=== PATIENT | male | born 1930 | race Caucasian/White ===

== ENCOUNTER 2016-12-27 04:04 | Inpatient (IN) | payer OTHER, BC ==
--- NOTE | 2016-12-27 04:24 | PDOC ---
History of Present Illness - General History Source: Patient <Poncho Lorenzana - Last Filed: 12/27/16 05:24> - General History Source: Patient Exam Limitations: No Limitations - History of Present Illness Initial Comments: 12/27/16 04:34 The patient is a 86 year old male with significant past medical history of dementia, hypertension, hyperlipidemia, diabetes, COPD, and BPH who presents to the ED BIBA from home with left hip pain s/p unwitnessed mechanical fall prior to arrival. Patient reports he was walking when he lost his balance and fell. He now has complaints of left hip pain. Patient denies LOC or trauma to the head. The patient denies fever, chills, cough, SOB, chest pain, and palpitations. The patient denies abdominal pain, nausea, vomiting, and diarrhea. Allergies: NKDA Social History: No alcohol, tobacco, or drug use reported. Past Surgical History: cholecystectomy, s/p hernia repair PCP: Dr. Rubio Mcadams <Diann Vences - Last Filed: 12/27/16 05:59> - General Chief Complaint: Injury Stated Complaint: POSSIBLE HIP FRACTURE Time Seen by Provider: 12/27/16 04:20 Past History - Past Medical History Anemia: No Asthma: No Cancer: No Cardiac Disorders: Yes (ARRYTHMIA) CVA: No COPD: Yes CHF: No Dementia: Yes (Early dementia) Diabetes: Yes (NIDDM) GI Disorders: Yes (COLON POLYPS; DIVERTICULOSIS; CECAL ANGIODYSPLASIAS) Disorders: Yes (BPH) HTN: Yes Hypercholesterolemia: Yes Liver Disease: No Seizures: No Thyroid Disease: No - Surgical History Abdominal Surgery: No Appendectomy: No Cardiac Surgery: No Cholecystectomy: Yes (2003) Lung Surgery: No Neurologic Surgery: No Orthopedic Surgery: Yes (FX ANKLE 2001) - Immunization History Immunization Up to Date: Yes - Psycho/Social/Smoking Cessation Hx Suicidal Ideation: No Smoking Status: No Smoking History: Former smoker Have you smoked in the past 12 months: No Number of Cigarettes Smoked Daily: 0 If you are a former smoker, when did you quit?: 1981 Information on smoking cessation initiated: No Hx Alcohol Use: Yes Drug/Substance Use Hx: No Substance Use Type: None Hx Substance Use Treatment: No <Poncho Lorenzana - Last Filed: 12/27/16 05:24> <Diann Vences Last Filed: 12/27/16 05:59> - Past Medical History Allergies/Adverse Reactions: Allergies Allergy/AdvReac Type Severity Reaction Status Date / Time No Known Drug Allergies Allergy Verified 12/27/16 04:08 Home Medications: Ambulatory Orders Atorvastatin Ca [Lipitor] 20 mg PO HS 11/01/15 Docusate Sodium [Stool Softener] 50 mg PO DAILY 11/01/15 Escitalopram Oxalate [Lexapro -] 10 mg PO DAILY 11/01/15 Losartan Potassium 50 mg PO DAILY 11/01/15 Memantine HCl [Namenda -] 10 mg PO DAILY 11/01/15 Montelukast Sodium [Singulair] 4 mg PO DAILY 11/01/15 Propranolol HCl [Propranolol HCl ER] 80 mg PO DAILY 11/01/15 Glimepiride 1 mg PO DAILY #0 11/08/15 Tamsulosin HCl [Flomax -] 0.8 mg PO DAILY@0830 cap.er.24h 11/08/15 Review of Systems - Review of Systems Able to Perform ROS?: Yes Comments:: 12/27/16 04:35 CONSTITUTIONAL: Absent: fever, no chills, no fatigue EYES: Absent: visual changes ENT: Absent: ear pain, no sore throat CARDIOVASCULAR: Absent: chest pain, no palpitations RESPIRATORY: Absent: cough, no SOB GI: Absent: abdominal pain, no nausea, no vomiting, no constipation, no diarrhea GENITOURINARY: Absent: dysuria, no frequency, no hematuria MUSKULOSKELETAL: +left hip pain Absent: back pain, no myalgia SKIN: Absent: rash NEURO: Absent: headache <Diann Vences - Last Filed: 12/27/16 05:59> *Physical Exam - Vital Signs Last Vital Signs Temp Pulse Resp BP Pulse Ox 97.3 F L 67 18 173/87 100 12/27/16 04:09 12/27/16 04:09 12/27/16 04:09 12/27/16 04:09 12/27/16 04:09 <Poncho Lorenzana - Last Filed: 12/27/16 05:24> - Vital Signs Last Vital Signs Temp Pulse Resp BP Pulse Ox 97.3 F L 67 18 173/87 100 12/27/16 04:09 12/27/16 04:09 03/16/17 04:09 12/27/16 04:09 12/27/16 04:09 - Physical Exam Comments: 12/27/16 04:35 GENERAL: Well-appearing, well-nourished. No apparent distress. HEENT: Normocephalic, atraumatic. No racoon or ambrosio signs. PERRL, EOM intact. No hemotympanum. CARDIOVASCULAR: Normal S1, S2. Regular rate and rhythm. PULMONARY: Clear to auscultation bilaterally. ABDOMEN: Soft, non-distended, non-tender. EXTREMITIES: Decreased ROM of the left leg secondary to pain. Left leg is slightly shortened and externally rotated compared to right leg. Negative pelvic rock. SKIN: Warm, dry. No rash NEUROLOGICAL: No focal neurological deficits. <Diann Vences - Last Filed: 12/27/16 05:59> Heart Score/ECG Review - ECG Impressions Comment:: 12/27/16 05:28 NSR @69bpm Normal ECG <Diann Vences - Last Filed: 12/27/16 05:59> ED Treatment Course - LABORATORY CBC & Chemistry Diagram: 12/27/16 04:40 12/27/16 04:40 <Poncho Lorenzana - Last Filed: 12/27/16 05:24> - LABORATORY CBC & Chemistry Diagram: 12/27/16 04:40 12/27/16 04:40 <Diann Vences - Last Filed: 12/27/16 05:59> Medical Decision Making - Medical Decision Making 12/27/16 05:24 Dr. Lorenzana: The scribe's documentation has been prepared under my direction and personally reviewed by me in its entirery. I confirm that the note above accurately reflects all work, treatment, procedures, and medical decision making performed by me. Pt with left intratrochanteric hip s/p fall. No other complaints will admit to Medsurg <Poncho Lorenzana - Last Filed: 12/27/16 05:24> - Medical Decision Making 12/27/16 05:[address] Ahmet Benitez who is covering for Dr. Alexander Bolden who is covering for Dr. Rubio Mcadams (via answering service) at 5:58 and patient's case was discussed. <Diann Vences - Last Filed: 12/27/16 05:59> *DC/Admit/Observation/Transfer - Discharge Dispostion Admit: Yes <Poncho Lorenzana - Last Filed: 12/27/16 05:24> - Attestations Scribe Attestion: 12/27/16 04:35 Documentation prepared by Diann Vences, acting as medical information specialist for Poncho Lorenzana MD <Diann Vences - Last Filed: 12/27/16 05:59> Diagnosis at time of Disposition: Closed fracture of left hip Qualifiers: Encounter type: initial encounter Qualified Code(s): S72.002A - Fracture of unspecified part of neck of left femur, initial encounter for closed fracture - Referrals Referrals: Rubio Mcadams MD [Primary Care Provider] -
[2016-12-27] MEDS ORDERED: morphine CARPU-JECT 2 MG/1 ML DISP.SYRIN IVPUSH ONE (04:25)
[2016-12-27] MEDS ORDERED: ONDANSETRON 4 MG/2 ML VIAL IVPUSH STA (04:25)
[2016-12-27] MEDS ORDERED: morphine CARPU-JECT 4 MG/1 ML DISP.SYRIN ONE (04:30)
[2016-12-27] MEDS ORDERED: ONDANSETRON 4 MG/2 ML VIAL ONE (04:30)
[2016-12-27 05:06] LABS: BASOPHIL 0.2 % (0-2.0); EOSINOPHIL 1.2 % (0-4.5); MCH 30.1 pg (25.7-33.7); MCHC 33.6 g/dl (32.0-35.9); MEAN CELL VOLUME 89.5 fl (80-96); MEAN PLT VOLUME 7.8 fl (7.5-11.1); NEUTROPHILS 78.5 % (42.8-82.8); PLATELET COUNT 237 K/MM3 (134-434); RDW 13.1 % (11.9-15.9); WHITE BLOOD COUNT 12.8 K/mm3 (4.0-10.0)
[2016-12-27 05:18] LABS: INR 1.2 (0.82-1.09); PROTHROMBIN TIME (PATIENT) 13.3 SEC (9.98-11.88)
[2016-12-27 05:29] LABS: ALBUMIN 3.8 g/dl (3.4-5.0); ANION GAP 6 (8-16); BILIRUBIN,TOTAL 1.2 mg/dL (0.2-1.0); CALCIUM 9.3 mg/dL (8.5-10.1); CO2 30 mmol/L (21-32); CREATININE 0.9 mg/dL (0.7-1.3); GLUCOSE,RANDOM 135 mg/dL (74-106); SGOT/AST 16 U/L (15-37); SGPT/ALT 20 U/L (12-78); TOT PROT 6.9 g/dl (6.4-8.2)
[2016-12-27 05:31] LABS: ALK PHOS 95 U/L (45-117)
--- NOTE | 2016-12-27 08:51 | PN ---
Progress Note (short form) - Note Progress Note: Dr. Bolden to document today.
[2016-12-27 10:18] VITALS: BMI 20.7
[2016-12-27] MEDS ORDERED: PNEUMOC 13-VAL CONJ-DIP CRM/PF 0.5 ML DISP.SYRIN IM ONE (10:18)
[2016-12-27] MEDS ORDERED: morphine CARPU-JECT 2 MG/1 ML DISP.SYRIN IVPUSH PRN (11:14)
[2016-12-27] MEDS ORDERED: ONDANSETRON 4 MG/2 ML VIAL IVPB PRN (11:14)
[2016-12-27] MEDS ORDERED: oxyCODONE HCL 5 MG TABLET PO PRN (11:14)
[2016-12-27] MEDS ORDERED: ACETAMINOPHEN 325 MG TABLET (FP) PO PRN (11:14)
--- NOTE | 2016-12-27 11:23 | HP ---
Admitting History and Physical - Primary Care Physician PCP: Rubio Mcadams - Admission Chief Complaint: I don't know History of Present Illness: Mr Mariee is a very pleasant 86 year old male who comes in s/p fall with hip fracture. He has a history of dementia and does not remember falling until reminded, he says he thinks it was a mechanical fall. He currently is without complaint. He denies fevers, chills, lightheadedness, dizziness, passing out, chest pain, shortness of breath, nausea, vomiting, abdominal pain, diarrhea or constipation (daughter at bedside and states he has a history of IBS and this alternates), pain or difficulty urinating, or swelling. He says he feels fine currently. 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 Cardiovascular: Yes: HTN, Hyperlipdemia Pulmonary: Yes: COPD Gastrointestinal: Yes: Diverticulosis, Other (colon polyps, cecal angiodysplasias) Renal/: Yes: BPH Endocrine: Yes: Diabetes Mellitus - Past Surgical History Past Surgical History: Yes: Cholecystectomy, Hernia Repair, TURP - Smoking History Smoking history: Former smoker Have you smoked in the past 12 months: No Aproximately how many cigarettes per day: 0 If you are a former smoker, when did you quit?: 1981 - Alcohol/Substance Use Hx Alcohol Use: Yes Number of Drinks Daily: 3 (beers) History of Substance Use: reports: None - Social History Usual Living Arrangement: Yes: With Child ADL: Family Assistance History of Recent Travel: No Home Medications - Allergies Allergies/Adverse Reactions: Allergies Allergy/AdvReac Type Severity Reaction Status Date / Time No Known Drug Allergies Allergy Verified 12/27/16 04:08 - Home Medications Home Medications: Ambulatory Orders Atorvastatin Ca [Lipitor] 20 mg PO HS 11/01/15 Docusate Sodium [Stool Softener] 50 mg PO DAILY 11/01/15 Escitalopram Oxalate [Lexapro -] 10 mg PO DAILY 11/01/15 Losartan Potassium 50 mg PO DAILY 11/01/15 Memantine HCl [Namenda -] 10 mg PO DAILY 11/01/15 Montelukast Sodium [Singulair] 4 mg PO DAILY 11/01/15 Propranolol HCl [Propranolol HCl ER] 80 mg PO DAILY 11/01/15 Glimepiride 1 mg PO DAILY #0 11/08/15 Tamsulosin HCl [Flomax -] 0.8 mg PO DAILY@0830 cap.er.24h 11/08/15 Family Disease History - Family Disease History Family Disease History: CA: Sister (bca), Daughter (bca), Other: Father (CVA), Mother (dementia) Review of Systems Findings/Remarks: Full review of systems obtained, as per HPI and otherwise negative. Physical Examination Vital Signs: Vital Signs Temperature 97.5 F L 12/27/16 09:59 Pulse Rate 77 12/27/16 09:59 Respiratory Rate 20 12/27/16 09:59 Blood Pressure 103/58 12/27/16 09:59 O2 Sat by Pulse Oximetry (%) 98 12/27/16 09:09 Constitutional: Yes: Well Nourished, No Distress, Calm Eyes: Yes: Conjunctiva Clear, PERRL HENT: Yes: Atraumatic, Normocephalic Cardiovascular: Yes: Regular Rate and Rhythm. No: Gallop, Murmur, Rub Respiratory: Yes: Regular, CTA Bilaterally. No: Rales, Rhonchi, Wheezes Gastrointestinal: Yes: Normal Bowel Sounds, Soft. No: Distention, Tenderness Extremities: Yes: WNL Edema: No Labs: Laboratory Results - last 24 hr 12/27/16 12/27/16 12/27/16 04:40 04:40 04:40 WBC 12.8 H RBC 4.40 Hgb 13.2 Hct 39.4 MCV 89.5 MCHC 33.6 RDW 13.1 Plt Count 237 D MPV 7.8 Neutrophils % 78.5 Lymphocytes % 11.4 Monocytes % 8.7 Eosinophils % 1.2 Basophils % 0.2 INR 1.20 H Sodium 134 L Potassium 4.5 Chloride 98 Carbon Dioxide 30 Anion Gap 6 L BUN 9 Creatinine 0.9 Creat Clearance w eGFR > 60 Random Glucose 135 H D Calcium 9.3 D Magnesium 2.0 Total Bilirubin 1.2 H AST 16 ALT 20 Alkaline Phosphatase 95 B-Natriuretic Peptide 642.47 H Total Protein 6.9 Albumin 3.8 Lipase 373 Blood Type Antibody Screen 12/27/16 04:59 WBC RBC Hgb Hct MCV MCHC RDW Plt Count MPV Neutrophils % Lymphocytes % Monocytes % Eosinophils % Basophils % INR Sodium Potassium Chloride Carbon Dioxide Anion Gap BUN Creatinine Creat Clearance w eGFR Random Glucose Calcium Magnesium Total Bilirubin AST ALT Alkaline Phosphatase B-Natriuretic Peptide Total Protein Albumin Lipase Blood Type O POSITIVE Antibody Screen Negative Imaging - Results Chest X-ray: Report Reviewed, Image Reviewed EKG: Image Reviewed Problem List - Problems (1) Closed fracture of left hip Assessment/Plan: -s/p fall with lip fracture -admit to med/surg -orthopedic consultation -EKG NSR, chest x-ray unchanged -no further testing indicated prior to surgery Code(s): S72.002A - FRACTURE OF UNSP PART OF NECK OF LEFT FEMUR, INIT Qualifiers: Encounter type: initial encounter Qualified Code(s): S72.002A - Fracture of unspecified part of neck of left femur, initial encounter for closed fracture (2) Fall Assessment/Plan: -mechanical -PT consult after surgery Code(s): W19.XXXA - UNSPECIFIED FALL, INITIAL ENCOUNTER Qualifiers: Encounter type: initial encounter Qualified Code(s): W19.XXXA - Unspecified fall, initial encounter (3) BPH (benign prostatic hyperplasia) Assessment/Plan: -continue flomax -may have retention after surgery secondary to anesthesia Code(s): N40.0 - BENIGN PROSTATIC HYPERPLASIA WITHOUT LOWER URINRY TRACT SYMP (4) COPD (chronic obstructive pulmonary disease) Assessment/Plan: -not in exacerbation -chest x-ray unchanged -continue home regimen Code(s): J44.9 - CHRONIC OBSTRUCTIVE PULMONARY DISEASE, UNSPECIFIED (5) Dementia Assessment/Plan: -continue namenda Code(s): F03.90 - UNSPECIFIED DEMENTIA WITHOUT BEHAVIORAL DISTURBANCE Qualifiers: Dementia type: unspecified type Dementia behavioral disturbance: without behavioral disturbance Qualified Code(s): F03.90 - Unspecified dementia without behavioral disturbance (6) Diabetes Assessment/Plan: -diabetic diet when able to eat -continue glimeperide -SSI Code(s): E11.9 - TYPE 2 DIABETES MELLITUS WITHOUT COMPLICATIONS Qualifiers: Diabetes mellitus type: type 2 Diabetes mellitus complication status: without complication Qualified Code(s): E11.9 - Type 2 diabetes mellitus without complications (7) HLD (hyperlipidemia) Assessment/Plan: -continue statin Code(s): E78.5 - HYPERLIPIDEMIA, UNSPECIFIED Qualifiers: Hyperlipidemia type: Pure hypercholesterolemia (8) HTN (hypertension) Assessment/Plan: -continue cozaar and inderal -well controlled currently Code(s): I10 - ESSENTIAL (PRIMARY) HYPERTENSION Qualifiers: Hypertension type: essential hypertension Qualified Code(s): I10 - Essential (primary) hypertension
--- NOTE | 2016-12-27 11:35 | EKG ---
Test Reason : Blood Pressure : / mmHG Vent. Rate : 069 BPM Atrial Rate : 069 BPM P-R Int : 142 ms QRS Dur : 090 ms QT Int : 412 ms P-R-T Axes : 070 064 068 degrees QTc Int : 441 ms NORMAL SINUS RHYTHM NORMAL ECG WHEN COMPARED WITH ECG OF 01-NOV-2015 12:18, [place] INTERVAL HAS INCREASED Confirmed by VIDHI ASHFORD MD ([id number]) on 12/27/2016 11:35:01 AM Referred By: Confirmed By:VIDHI ASHFORD MD
--- NOTE | 2016-12-27 11:37 | CON.ORTH ---
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 Cardio/Vascular: Yes: HTN, Hyperlipdemia Pulmonary: Yes: COPD Gastrointestinal: Yes: Diverticulosis, Other (colon polyps, cecal angiodysplasias) Renal/: Yes: BPH Endocrine: Yes: Diabetes Mellitus - Past Surgical History Past Surgical History: Yes: Cholecystectomy, Hernia Repair, TURP - Alcohol/Substance Use Hx Alcohol Use: Yes Number of Drinks Daily: 3 (beers) History of Substance Use: reports: None - Smoking History Smoking history: Former smoker Have you smoked in the past 12 months: No Aproximately how many cigarettes per day: 0 If you are a former smoker, when did you quit?: 1981 - Social History ADL: Family Assistance History of Recent Travel: No Home Medications - Allergies Allergies/Adverse Reactions: Allergies Allergy/AdvReac Type Severity Reaction Status Date / Time No Known Drug Allergies Allergy Verified 12/27/16 04:08 - Home Medications Home Medications: Ambulatory Orders Atorvastatin Ca [Lipitor] 20 mg PO HS 11/01/15 Docusate Sodium [Stool Softener] 50 mg PO DAILY 11/01/15 Escitalopram Oxalate [Lexapro -] 10 mg PO DAILY 11/01/15 Losartan Potassium 50 mg PO DAILY 11/01/15 Memantine HCl [Namenda -] 10 mg PO DAILY 11/01/15 Montelukast Sodium [Singulair] 4 mg PO DAILY 11/01/15 Propranolol HCl [Propranolol HCl ER] 80 mg PO DAILY 11/01/15 Glimepiride 1 mg PO DAILY #0 11/08/15 Tamsulosin HCl [Flomax -] 0.8 mg PO DAILY@0830 cap.er.24h 11/08/15 Family Disease History - Family Disease History Family Disease History: CA: Sister (bca), Daughter (bca), Other: Father (CVA), Mother (dementia) Physical Exam for Ortho Vital Signs: Vital Signs Temperature 97.5 F L 12/27/16 09:59 Pulse Rate 77 12/27/16 09:59 Respiratory Rate 20 12/27/16 09:59 Blood Pressure 103/58 12/27/16 09:59 O2 Sat by Pulse Oximetry (%) 98 12/27/16 09:09 Labs: INR, PTT INR 1.20 (0.82-1.09) H 12/27/16 04:40 - Lower Extremity Hip: Yes: Left, Decreased ROM, Leg Externally Rotated, Leg Shortened, Pain, Swelling, Other (nvi) Imaging - Results X-ray: Report Reviewed, Image Reviewed Assessment/Plan 86 year old male who comes in s/p fall with hip fracture. He has a history of dementia and does not remember falling until reminded, he says he thinks it was a mechanical fall. He currently is without complaint. He denies fevers, chills, lightheadedness, dizziness, passing out, chest pain, shortness of breath, nausea , vomiting, abdominal pain, diarrhea or constipation, pain or difficulty urinating, or swelling. a/p= left displaced proximal femur fx Risks and benefits were d/w pt and daughter will require left IM gamma nail surgical clearance NPO- possible OR for today/tomorrow d/w Dr. Forbes
[2016-12-27 11:50] LABS: PH,URINE 5.5 (5.0-8.0); URINE APPEARANCE CLEAR; URINE BILIRUBIN NEGATIVE (NEGATIVE); URINE BLOOD NEGATIVE (NEGATIVE); URINE COLOR YELLOW; URINE GLUCOSE (UA) NEGATIVE (NEGATIVE); URINE KETONE TRACE (NEGATIVE); URINE LEUK ESTERASE NEGATIVE (NEGATIVE); URINE NITRITE NEGATIVE (NEGATIVE); URINE PROTEIN TRACE (NEGATIVE); URINE UROBILINOGEN 1.0 E.U/dl E.U./dl (0.2-1.0)
[2016-12-27] MEDS ORDERED: LOSARTAN POTASSIUM 50 MG TABLET (FP) PO SCH (15:45)
--- NOTE | 2016-12-27 16:31 | PN ---
Progress Note (short form) - Note Progress Note: Pt seen and examined. All questions answered. Risks, potential complications, benefits explained. OR too busy to do the surgery tonight. Plan - Left Hip surgery tomorrow around 3pm. NPO after midnight tonight Medical clearance
[2016-12-27] MEDS: INSULIN SLIDING SCALE (NOVOLOG) 1 VIAL SQ SCH ×2 (16:33→21:01)
[2016-12-27] MEDS: TAMSULOSIN HCL 0.4 MG CAP.ER.24H (FP) PO SCH (16:33)
[2016-12-27] MEDS: ENOXAPARIN NA (PORCINE) 40 MG/0.4 ML DISP.SYRIN SQ SCH (16:34)
[2016-12-27] MEDS: ESCITALOPRAM OXALATE 10 MG TABLET (FP) PO SCH (16:34)
[2016-12-27] MEDS: MEMANTINE HCL 10 MG TABLET (FP) PO SCH (16:34)
[2016-12-27] MEDS: DOCUSATE SODIUM 100 MG CAPSULE (FP) PO SCH (21:30)
[2016-12-27] MEDS: ATORVASTATIN CA 20 MG TABLET (FP) PO SCH (21:30)
[2016-12-28] MEDS: GLIMEPIRIDE 1 MG TABLET (FP) PO SCH (06:02)
[2016-12-28] MEDS: INSULIN SLIDING SCALE (NOVOLOG) 1 VIAL SQ SCH ×3 (06:03→22:15)
[2016-12-28 08:02] LABS: BASOPHIL 0.1 % (0-2.0); EOSINOPHIL 0.1 % (0-4.5); MCH 30.6 pg (25.7-33.7); MCHC 34.5 g/dl (32.0-35.9); MEAN CELL VOLUME 88.6 fl (80-96); MEAN PLT VOLUME 8.1 fl (7.5-11.1); NEUTROPHILS 74.8 % (42.8-82.8); PLATELET COUNT 213 K/MM3 (134-434); RDW 13.2 % (11.9-15.9)
[2016-12-28 08:48] LABS: CALCIUM 8.3 mg/dL (8.5-10.1); CREATININE 1.4 mg/dL (0.7-1.3); MAGNESIUM 1.8 mg/dL (1.8-2.4); PHOSPHOROUS 4.4 mg/dL (2.5-4.9)
[2016-12-28] MEDS: ESCITALOPRAM OXALATE 10 MG TABLET (FP) PO SCH (09:12)
[2016-12-28] MEDS: TAMSULOSIN HCL 0.4 MG CAP.ER.24H (FP) PO SCH (09:12)
[2016-12-28] MEDS: MEMANTINE HCL 10 MG TABLET (FP) PO SCH (09:12)
[2016-12-28] MEDS: POLYETHYLENE GLYCOL 3350 119 GM BTL PO SCH (09:12)
[2016-12-28] MEDS: DOCUSATE SODIUM 100 MG CAPSULE (FP) PO SCH ×2 (09:12→22:21)
[2016-12-28] MEDS: DEXTROSE 5%-0.45% SALINE 1,000 ML IV SCH ×2 (09:25→19:45)
[2016-12-28] MEDS ORDERED: PATIENT'S OWN MEDICATION (NON-FORMULARY) (Montelukast Sodium [Singulair] 4 MG) PO SCH (10:00)
--- NOTE | 2016-12-28 10:24 | PN ---
Progress Note (short form) - Note Progress Note: Patient will be going to the OR today for Gamma nail placement left hip. He seems comfortable on current meds but does have dementia so sometimes nonverbal assessment of his pain may have to be considered. He had clearance for hernia surgery Oct, 2015 and has no complaints of chest pain or SOB and EKG and CXR show no acute changes. BP trending lower this AM and BUN is increased so IV fluids ordered at 75 cc/hr. Other issue is elevated WBC which may be a stress reaction as he is afebrile and urine clear and CXR has no infiltrate.Will order blood and urine C/S. On Exam: Vital Signs Period Temp Pulse Resp BP Sys/Quinn Pulse Ox Last 24 Hr 97.6 F-98.9 F 77-92 16-20 88-110/45-61 94 Alert and recognizes me Not showing signs of acute pain Chest:Decreased breath sounds Cor: reg Abd; Soft Left leg externally rotated No pedal edema Abnormal Lab Results 12/27/16 12/28/16 12/28/16 11:29 05:35 05:35 WBC 15.0 H RBC 3.08 L D Hgb 9.4 L D Hct 27.3 L D Monocytes % 14.6 H Sodium 134 L Chloride 96 L BUN 19 H D Creatinine 1.4 H D Random Glucose 139 H Calcium 8.3 L Urine Protein Trace H Urine Ketones Trace H IMP: Acute left hip fx. due to mechanical fall DM Type 2 controlled Hypertension by Hx Acute blood loss anemia due to fracture Relative hypotension due to acute dehydartion Hyperlipidemia Dementia on Rx PLAN: patient has no medical contraindications to surgery Close followup of BP and CBC; IV fluid in place EKG in recovery room type and screen in lab BGM ordered
[2016-12-28] MEDS ORDERED: BUPIVACAINE HCL/PF 0.5% (5MG/ML) 10 ML VIAL ONE (15:45)
[2016-12-28] MEDS ORDERED: SUCCINYLCHOLINE CHLORIDE 200 MG/10 ML VIAL ONE (15:49)
[2016-12-28] MEDS ORDERED: ceFAZolin SODIUM 1 GM VIAL IVPB ONE (16:00)
[2016-12-28] MEDS ORDERED: ceFAZolin SODIUM 1 GM VIAL ONE (16:11)
--- NOTE | 2016-12-28 16:38 | OP ---
Operative Note - Note: Operative Date: 12/28/16 Pre-Operative Diagnosis: left IT hip Fx Operation: Left gamma Post-Operative Diagnosis: Same as Pre-op Surgeon: Adria Silva Anesthesia: General, Spinal Operative Report Dictated: Yes
[2016-12-28] MEDS ORDERED: LACTATED RINGERS SOLUTION 1,000 ML IV SCH ×2 (16:45)
[2016-12-28] MEDS ORDERED: CEFAZOLIN 1 GM/D5W 50 ML IVPB SCH (18:00)
--- NOTE | 2016-12-28 18:04 | SPEC ---
DATE OF SURGERY: 12/28/2016 OPERATION: Left Gamma nailing. PREOPERATIVE DIAGNOSIS: Left intertrochanteric hip fracture. POSTOPERATIVE DIAGNOSIS: Left intertrochanteric hip fracture. SURGEON: Adria Silva M.D. ANESTHESIA: Spinal and general. CLOSURE: A short Gamma nail with appropriate interlocks. No. 0 Vicryl for fascia, 2-0 for subcutaneous, linette for skin. ESTIMATED BLOOD LOSS: Less than 100 mL. COMPLICATIONS: None. CONDITION: Recovery room in stable condition. DESCRIPTION OF OPERATIVE PROCEDURE: The patient was taken to the operating room. Spinal anesthesia was administered by the anesthesiologist. IV antibiotic prophylaxis was administered prior to the case. Patient was fastened to the fracture table with all prominences well padded. The left hip fracture was reduced and confirmation of excellent reduction from the AP and lateral planes was established using the image intensifier. A small 1-inch incision was made at the greater tip of the greater trochanter. Hemostasis was achieved with Bovie cautery. Sharp dissection was carried through the fascia. The K-wire was drilled from the tip of the greater trochanter past the fracture, into the intramedullary canal. Proper placement confirmed the AP and lateral planes by using the image intensifier. This was overreamed with a proximal reamer using the tissue protector to protect the soft tissue in the region. A short Gamma nail was then malleted down into place into the intramedullary canal to the appropriate level. Using the outrigger and a small stab incision laterally, a Guidewire was drilled from one aspect of the femur through the femoral neck into the femoral head. Proper placement was confirmed of the AP and lateral planes using image intensifier. The wire was measured for length and was overreamed with a triple reamer and was screwed with the appropriate-length lag screw. Confirmation of appropriate depth was confirmed in the AP and lateral planes by using image intensifier. Traction was reduced. The compression device was used to compress the fracture and a screw was placed from above in a dynamic fashion. Again, using the outrigger and a small stab incision laterally, the distal locking screw was placed by drilling and an appropriate-sized screw. The outrigger was removed. Confirmation of excellent reduction was confirmed in the AP and lateral planes by using image intensifier with excellent position of the hardware. All incisions were irrigated with copious amounts of irrigation. The fascia was closed with 0 Vicryl, 2-0 for subcutaneous and 3-0 Monocryl subcuticular for skin. A sterile pressure dressing was applied. The patient was awakened from anesthesia and transferred to recovery room in stable condition. No complications. Estimated blood loss less than 100 mL. ADRIA SILVA M.D. [id number]
[2016-12-28] MEDS: ATORVASTATIN CA 20 MG TABLET (FP) PO SCH (22:20)
[2016-12-29] MEDS: INSULIN SLIDING SCALE (NOVOLOG) 1 VIAL SQ SCH ×3 (06:20→21:14)
--- NOTE | 2016-12-29 08:23 | PN ---
Progress Note (short form) - Note Progress Note: PATIENT S/P LT HIP FX ,> GAMMA NAIL REPAIR . WELL TODAY <> NO COMPLAINTS OF HIP PAIN > NO CP / NO SOB / NO PALPITATIONS. Selected Entries 12/29/16 06:00 Temperature 98.4 F Pulse Rate 94 H Respiratory 18 Rate Blood Pressure 130/56 Laboratory Tests 12/28/16 12/28/16 12/29/16 05:35 05:35 06:17 WBC 15.0 H RBC 3.08 L D Hgb 9.4 L D Hct 27.3 L D Plt Count 213 Sodium 134 L Potassium 4.3 Chloride 96 L Carbon Dioxide 28 Anion Gap 10 BUN 19 H D Creatinine 1.4 H D POC Glucometer 196 Calcium 8.3 L Phosphorus 4.4 D Magnesium 1.8 P/E <> AWAKE/ ALERT / NO DISTRESS HEENT <> NECK SUPPLE / CAROTIDS <> NO BRUITS COR < > S 1 S 2 NO M NO G CHEST <> CLEAR / NO RHONCHI ABD <> SOFT / NON TENDER. EXT <> NO CALF TENDERNESS. IMP >< LT HIP FX <> S/P GAMMA NAIL DEMENTIA HTN ANEMIA DUE TO BLOOD LOSS TYPE 2 DM HYPERCHOLESTEROLEMIA PLAN : ORTHO FOLLOWUP MONITOR LABS FOLLOW CBC PT EVAL [facility] REHAB.
[2016-12-29 08:51] LABS: MCHC 34.8 g/dl (32.0-35.9); MEAN CELL VOLUME 89.2 fl (80-96); MEAN PLT VOLUME 7.9 fl (7.5-11.1); PLATELET COUNT 200 K/MM3 (134-434); WHITE BLOOD COUNT 13.6 K/mm3 (4.0-10.0)
[2016-12-29 08:53] LABS: BASOPHIL 0.1 % (0-2.0); EOSINOPHIL 0.1 % (0-4.5); MCH 30.8 pg (25.7-33.7); MCHC 34.5 g/dl (32.0-35.9); MEAN CELL VOLUME 89.2 fl (80-96); MEAN PLT VOLUME 8.2 fl (7.5-11.1); NEUTROPHILS 77.5 % (42.8-82.8); PLATELET COUNT 195 K/MM3 (134-434); RDW 12.9 % (11.9-15.9); WHITE BLOOD COUNT 13.6 K/mm3 (4.0-10.0)
[2016-12-29 09:17] LABS: CREATININE 1.2 mg/dL (0.7-1.3)
[2016-12-29] MEDS ORDERED: PT OWN MED DRAWER 7, Y5N ONE (09:29)
--- NOTE | 2016-12-29 09:34 | PN ---
Progress Note (short form) - Note Progress Note: ANESTHESIOLOGY POST-OP CHECK 86M s/p left gamma nail under spinal anesthesia, POD #1. No acute complaints. Tolerating PO, denies N/V, backache, headache, numbness, weakness. Pain 4/10 - tolerable Vital Signs Temperature 98.4 F 12/29/16 06:00 Pulse Rate 94 H 12/29/16 06:00 Respiratory Rate 18 12/29/16 06:00 Blood Pressure 130/56 12/29/16 06:00 O2 Sat by Pulse Oximetry (%) 95 12/28/16 21:00 Active Medications Acetaminophen (Tylenol -) 650 mg PO Q4H PRN PRN Reason: FEVER OR PAIN Atorvastatin Calcium (Lipitor -) 20 mg PO HS [facility] Last Admin: 12/28/16 22:20 Dose: 20 mg Docusate Sodium (Colace -) 100 mg PO BID [facility] Last Admin: 12/28/16 22:21 Dose: 100 mg Docusate Sodium (Colace Liquid -) 50 mg PO DAILY [facility] Enoxaparin Sodium (Lovenox -) 40 mg SQ DAILY [facility] Last Admin: 12/27/16 16:34 Dose: 40 mg Escitalopram Oxalate (Lexapro -) 10 mg PO DAILY [facility] Last Admin: 12/28/16 09:12 Dose: 10 mg Fentanyl (Sublimaze Injection -) 50 mcg IVPUSH [id number] PRN PRN Reason: PAIN Stop: 12/31/16 16:42 Glimepiride (Amaryl -) 1 mg PO DAILY@0700 [facility] Last Admin: 12/28/16 06:02 Dose: Not Given Dextrose/Sodium Chloride (D5-1/2ns -) 1,000 mls @ 75 mls/hr IV ASDIR [facility] Last Admin: 12/28/16 19:45 Dose: 0 mls Lactated Ringer's (Lactated Ringers Solution) 1,000 mls @ 75 mls/hr IV ASDIR [facility] Last Admin: 12/28/16 20:05 Dose: Not Given Insulin Aspart (Novolog Vial Sliding Scale -) 1 vial SQ ACHS [facility] PRN Reason: Protocol Last Admin: 12/29/16 06:20 Dose: Not Given Memantine (Namenda -) 10 mg PO DAILY [facility] Last Admin: 12/28/16 09:12 Dose: 10 mg Morphine Sulfate (Morphine Injection -) 1 mg IVPUSH Q4H PRN PRN Reason: PAIN Last Admin: 12/27/16 16:38 Dose: 1 mg Ondansetron HCl (Zofran Injection) 4 mg IVPB Q6H PRN PRN Reason: NAUSEA Oxycodone HCl (Roxicodone -) 5 mg PO Q4H PRN PRN Reason: PAIN Polyethylene Glycol (Miralax (For Daily Use) -) 17 gm PO DAILY [facility] Last Admin: 12/28/16 09:12 Dose: Not Given Tamsulosin HCl (Flomax -) 0.8 mg PO DAILY@0830 [facility] Last Admin: 12/28/16 09:12 Dose: 0.8 mg Gen: Awake, alert Ext: No apparent motor/sensory deficits of bilateral lower extremities No apparent anesthesia complications, pain well controlled. Continue management as per primary team.
[2016-12-29] MEDS: GLIMEPIRIDE 1 MG TABLET (FP) PO SCH (09:59)
[2016-12-29] MEDS: DOCUSATE SODIUM 100 MG CAPSULE (FP) PO SCH ×2 (09:59→21:13)
[2016-12-29] MEDS: ESCITALOPRAM OXALATE 10 MG TABLET (FP) PO SCH (09:59)
[2016-12-29] MEDS: MEMANTINE HCL 10 MG TABLET (FP) PO SCH (09:59)
[2016-12-29] MEDS: TAMSULOSIN HCL 0.4 MG CAP.ER.24H (FP) PO SCH (09:59)
[2016-12-29] MEDS ORDERED: ENOXAPARIN NA (PORCINE) 40 MG/0.4 ML DISP.SYRIN SQ SCH (10:00)
[2016-12-29] MEDS: POLYETHYLENE GLYCOL 3350 119 GM BTL PO SCH (10:03)
[2016-12-29] MEDS: ENOXAPARIN NA (PORCINE) 40 MG/0.4 ML DISP.SYRIN SQ SCH (12:00)
--- NOTE | 2016-12-29 13:36 | PN ---
Progress Note (short form) - Note Progress Note: ID Consult dictated +Urine c/s likely contaminant/ colonizer S/P L hip fracture OBS Repeat U/A, c/s Observe off antibiotics
[2016-12-29] MEDS: DOCUSATE NA 100 MG/10 ML UNIT-DOSE CUPS PO SCH (13:45)
--- NOTE | 2016-12-29 14:00 | CONS ---
DATE OF CONSULTATION: DATE OF DICTATION: 12/29/2016 The patient is an 86-year-old male who was evaluated for positive urine culture. The patient was admitted to the hospital on December 27, 2016, with left hip pain after a mechanical fall. He was found to have a left hip fracture. The patient was taken to the operating room where a Gamma Nail procedure was performed. Urine culture obtained is now growing 2 organisms, enterococcus 10,000 to 20,000 colonies and gram-negative rods less than 10,000 colonies. The patient is awake and alert. He denies any urinary tract symptoms. He denies any dysuria or hematuria. No complaints of suprapubic or flank pain. He has been afebrile. PAST MEDICAL HISTORY: Positive for dementia, hypertension, hyperlipidemia, diabetes mellitus, COPD. ALLERGIES: No known allergies. MEDICATIONS: Zofran, Flomax, Tylenol, Lovenox, Lexapro, Colace, Namenda, Lipitor, morphine, Amaryl. PAST SURGICAL HISTORY: Status post cholecystectomy, hernia repair, and TURP. SOCIAL HISTORY: Lives at home, former smoker. REVIEW OF SYSTEMS: Neurologic: No loss of consciousness, seizure activity, focal weakness. Positive dementia. Cardiac: Negative chest pain or palpitations. Respiratory: Negative cough or sputum production. Gastrointestinal: Negative vomiting or diarrhea. Genitourinary: As per HPI. LABORATORY DATA: White count 13.6, hematocrit 24.6, platelets 200. BUN 19, creatinine 1.2. Urinalysis: No white cells. Urine culture growing 10,000 to 20,000 enterococcus species, less than 10,000 gram-negative rods. PHYSICAL EXAMINATION: General: He is out of bed to chair. He is awake and alert, in no acute distress. Vital Signs: Temperature 98.4. Blood pressure 124/56. Pulse 100, regular. Respirations 18 per minute. HEENT: Sclerae are anicteric. Cardiovascular: Heart sounds S1, S2. Lungs: Clear. Abdomen: Soft. No suprapubic tenderness. Extremities: Negative for edema. Postop dressing in place, left hip. ASSESSMENT: 1. Positive urine culture, likely represents contamination/colonization. 2. Status post left hip fracture with repair. 3. Dementia. Absence of urinary tract symptoms, polyuria, and presence of 2 organisms and low colony count all suggestive of contamination or colonization of the urinary tract. Advised observe off antibiotic therapy. Repeat urinalysis and urine culture. Thank you for the kind referral. TAWANDA BAHENA M.D. [id number]
--- NOTE | 2016-12-29 16:33 | PN ---
Progress Note (short form) - Note Progress Note: Pt seen and examined. On POD #1 s/p Gamma nail.Comfortable, no c/o pain, did P.T. H/H lower but ok at 8.6/24.6 AVSS B/L LE are NVI Good ROM Good strength Dressing CDI Overall doing well. P.T. DC planning
[2016-12-29] MEDS: ATORVASTATIN CA 20 MG TABLET (FP) PO SCH (21:13)
[2016-12-30] MEDS: DEXTROSE 5%-0.45% SALINE 1,000 ML IV SCH ×2 (01:39→22:52)
[2016-12-30 03:12] LABS: URINE APPEARANCE CLEAR; URINE BILIRUBIN NEGATIVE (NEGATIVE); URINE BLOOD NEGATIVE (NEGATIVE); URINE COLOR YELLOW; URINE GLUCOSE (UA) NEGATIVE (NEGATIVE); URINE KETONE NEGATIVE (NEGATIVE); URINE LEUK ESTERASE NEGATIVE (NEGATIVE); URINE NITRITE NEGATIVE (NEGATIVE); URINE PROTEIN NEGATIVE (NEGATIVE); URINE UROBILINOGEN 2.0 E.U/dl E.U./dl (0.2-1.0)
[2016-12-30] MEDS ORDERED: PT OWN MED DRAWER 7, Y5N ONE ×2 (06:11→10:07)
[2016-12-30] MEDS: GLIMEPIRIDE 1 MG TABLET (FP) PO SCH ×2 (06:13→11:15)
[2016-12-30] MEDS: INSULIN SLIDING SCALE (NOVOLOG) 1 VIAL SQ SCH ×5 (06:13→23:00)
[2016-12-30 07:22] LABS: MCH 30.8 pg (25.7-33.7); MCHC 34.2 g/dl (32.0-35.9); MEAN CELL VOLUME 89.9 fl (80-96); MEAN PLT VOLUME 7.8 fl (7.5-11.1); PLATELET COUNT 198 K/MM3 (134-434); RDW 13.5 % (11.9-15.9); WHITE BLOOD COUNT 11.5 K/mm3 (4.0-10.0)
--- NOTE | 2016-12-30 08:20 | PN ---
[id number] S/P LT HIP FX WITH GAMMA NAIL REPAIR . DROP H /H NOTED TODAY Selected Entries 12/30/16 05:00 Temperature 98.2 F Pulse Rate 96 H Respiratory 20 Rate Blood Pressure 120/56 Blood Pressure 77 Mean Laboratory Tests 12/29/16 12/30/16 06:50 06:15 WBC 11.5 H RBC 2.54 L Hgb 7.8 L Hct 22.8 L Plt Count 198 Sodium 136 Potassium 4.3 Chloride 99 Carbon Dioxide 28 Anion Gap 9 BUN 19 H Creatinine 1.2 Random Glucose 173 H D Calcium 8.0 L Selected Entries Laboratory Tests P/E <> AWAKE/ COMFORTABLE / CONFUSED AT TIMES. HEENT <> NECK SUPPLE / CAROTIDS <> NO BRUITS COR < > S 1 S 2 NO M NO G CHEST <> CLEAR / NO RHONCHI ABD <> SOFT / NON TENDER. EXT <> NO CALF TENDERNESS / LEFT HIP BANDAGE IN PLACE. IMP >< LT HIP FX <> S/P GAMMA NAIL DEMENTIA HTN ANEMIA DUE TO BLOOD LOSS / DROP H / H TODAY. TYPE 2 DM HYPERCHOLESTEROLEMIA PLAN :REPEAT CBC TOMORROW / TRANSFUSE PRBC NEEDED. CONTINUE PT RX. ORTHO FOLLOWUP APPRECIATED. PLAN FOR SNF REHAB.
[2016-12-30] MEDS: ENOXAPARIN NA (PORCINE) 40 MG/0.4 ML DISP.SYRIN SQ SCH (09:11)
[2016-12-30] MEDS: DOCUSATE SODIUM 100 MG CAPSULE (FP) PO SCH ×2 (09:11→22:52)
[2016-12-30] MEDS: MEMANTINE HCL 10 MG TABLET (FP) PO SCH (09:12)
[2016-12-30] MEDS: ESCITALOPRAM OXALATE 10 MG TABLET (FP) PO SCH (09:12)
[2016-12-30] MEDS: TAMSULOSIN HCL 0.4 MG CAP.ER.24H (FP) PO SCH (09:12)
[2016-12-30] MEDS: DOCUSATE NA 100 MG/10 ML UNIT-DOSE CUPS PO SCH (09:15)
--- NOTE | 2016-12-30 11:29 | EKG ---
Test Reason : Blood Pressure : / mmHG Vent. Rate : 099 BPM Atrial Rate : 099 BPM P-R Int : 132 ms QRS Dur : 102 ms QT Int : 358 ms P-R-T Axes : 062 046 067 degrees QTc Int : 459 ms NORMAL SINUS RHYTHM INCOMPLETE RIGHT BUNDLE BRANCH BLOCK BORDERLINE ECG WHEN COMPARED WITH ECG OF 28-DEC-2016 16:43, COMPARED TO EKG NO SIGNIFICANT CHANGE IS FOUND Confirmed by NEETU AMAYA MD ([id number]) on 12/30/2016 11:29:08 AM Referred By: SAUL MARIE Confirmed By:NEETU AMAYA MD
[2016-12-30] MEDS: POLYETHYLENE GLYCOL 3350 119 GM BTL PO SCH (14:52)
--- NOTE | 2016-12-30 16:33 | PN ---
Progress Note, Physician History of Present Illness: No c/o hip pain No fever/ chills No c/o dysuria - Current Medication List Current Medications: Active Medications Acetaminophen (Tylenol -) 650 mg PO Q4H PRN PRN Reason: FEVER OR PAIN Last Admin: 12/29/16 11:01 Dose: 650 mg Atorvastatin Calcium (Lipitor -) 20 mg PO HS [facility] Last Admin: 12/29/16 21:13 Dose: 20 mg Docusate Sodium (Colace -) 100 mg PO BID [facility] Last Admin: 12/30/16 09:11 Dose: 100 mg Docusate Sodium (Colace Liquid -) 50 mg PO DAILY [facility] Last Admin: 12/30/16 09:15 Dose: Not Given Enoxaparin Sodium (Lovenox -) 40 mg SQ DAILY [facility] Last Admin: 12/30/16 09:11 Dose: 40 mg Escitalopram Oxalate (Lexapro -) 10 mg PO DAILY [facility] Last Admin: 12/30/16 09:12 Dose: 10 mg Fentanyl (Sublimaze Injection -) 50 mcg IVPUSH [id number] PRN PRN Reason: PAIN Stop: 12/31/16 16:42 Glimepiride (Amaryl -) 1 mg PO DAILY@0700 [facility] Last Admin: 12/30/16 11:15 Dose: 1 mg Dextrose/Sodium Chloride (D5-1/2ns -) 1,000 mls @ 75 mls/hr IV ASDIR [facility] Last Admin: 12/30/16 01:39 Dose: 75 mls/hr Insulin Aspart (Novolog Vial Sliding Scale -) 1 vial SQ ACHS [facility] PRN Reason: Protocol Last Admin: 12/30/16 11:35 Dose: Not Given Memantine (Namenda -) 10 mg PO DAILY [facility] Last Admin: 12/30/16 09:12 Dose: 10 mg Ondansetron HCl (Zofran Injection) 4 mg IVPB Q6H PRN PRN Reason: NAUSEA Polyethylene Glycol (Miralax (For Daily Use) -) 17 gm PO DAILY [facility] Last Admin: 12/30/16 14:52 Dose: 17 gm Tamsulosin HCl (Flomax -) 0.8 mg PO DAILY@0830 [facility] Last Admin: 12/30/16 09:12 Dose: 0.8 mg - Objective Vital Signs: Vital Signs Temperature 98.2 F 12/30/16 05:00 Pulse Rate 100 H 12/30/16 13:00 Respiratory Rate 18 12/30/16 13:00 Blood Pressure 115/57 12/30/16 13:00 O2 Sat by Pulse Oximetry (%) 95 12/29/16 21:00 Constitutional: Yes: No Distress Eyes: Yes: Conjunctiva Clear Cardiovascular: Yes: Regular Rate and Rhythm, S1, S2 Respiratory: Yes: CTA Bilaterally Gastrointestinal: Yes: Normal Bowel Sounds, Soft. No: Tenderness Labs: CBC, BMP 12/30/16 06:15 12/29/16 06:50 INR, PTT INR 1.20 (0.82-1.09) H 12/27/16 04:40 Assessment/Plan +Urine c/s= contaminant S/P hip fracture OBS Observe off antibiotics
[2016-12-30] MEDS: ATORVASTATIN CA 20 MG TABLET (FP) PO SCH (22:53)
[2016-12-31] MEDS: INSULIN SLIDING SCALE (NOVOLOG) 1 VIAL SQ SCH ×5 (06:21→22:14)
[2016-12-31] MEDS: GLIMEPIRIDE 1 MG TABLET (FP) PO SCH (06:21)
[2016-12-31 07:22] LABS: BASOPHIL 0.3 % (0-2.0); EOSINOPHIL 0.8 % (0-4.5); MCH 31.2 pg (25.7-33.7); MCHC 34.8 g/dl (32.0-35.9); MEAN CELL VOLUME 89.5 fl (80-96); MEAN PLT VOLUME 7.6 fl (7.5-11.1); NEUTROPHILS 73.9 % (42.8-82.8); PLATELET COUNT 228 K/MM3 (134-434); RDW 13.3 % (11.9-15.9); WHITE BLOOD COUNT 10.3 K/mm3 (4.0-10.0)
[2016-12-31 07:54] LABS: ALBUMIN 2.2 g/dl (3.4-5.0); ANION GAP 8 (8-16); CALCIUM 7.7 mg/dL (8.5-10.1); CO2 28 mmol/L (21-32); GLUCOSE,RANDOM 139 mg/dL (74-106)
[2016-12-31 07:57] LABS: ALK PHOS 58 U/L (45-117); BILIRUBIN,TOTAL 1.4 mg/dL (0.2-1.0); CREATININE 0.8 mg/dL (0.7-1.3); SGOT/AST 15 U/L (15-37); SGPT/ALT 14 U/L (12-78); TOT PROT 4.7 g/dl (6.4-8.2)
[2016-12-31] MEDS: CEFAZOLIN 1 GM/D5W 50 ML IVPB SCH ×2 (08:30→08:31)
[2016-12-31] MEDS: TAMSULOSIN HCL 0.4 MG CAP.ER.24H (FP) PO SCH (08:49)
--- NOTE | 2016-12-31 09:19 | PN ---
Progress Note (short form) - Note Progress Note: Ortho Pt seen and examined s/p right IM gamma nail Selected Entries 12/31/16 08:58 Temperature 99.1 F Pulse Rate 101 H Respiratory 18 Rate Blood Pressure 147/74 Laboratory Tests 12/31/16 06:20 WBC 10.3 H Hgb 7.7 L Hct 22.1 L Plt Count 228 dressing c/d/i, calf soft, nt nvi a/p PT dvt ppx pain control d/c planning
--- NOTE | 2016-12-31 09:57 | PN ---
Progress Note, Physician Chief Complaint: No complaint of pain at left hip but he has cognitive impairment. History of Present Illness: Patient required Gammanail insertion left hip on 12/28/16. He is still at bed rest and had only ROM on Saturday. No obvious pain or nonverbal cues. Hb down to 7.7GM; will follow. - Current Medication List Current Medications: Active Medications Acetaminophen (Tylenol -) 650 mg PO Q4H PRN PRN Reason: FEVER OR PAIN Last Admin: 12/29/16 11:01 Dose: 650 mg Atorvastatin Calcium (Lipitor -) 20 mg PO HS [facility] Last Admin: 12/30/16 22:53 Dose: 20 mg Docusate Sodium (Colace -) 100 mg PO BID [facility] Last Admin: 12/30/16 22:52 Dose: 100 mg Docusate Sodium (Colace Liquid -) 50 mg PO DAILY [facility] Last Admin: 12/30/16 09:15 Dose: Not Given Enoxaparin Sodium (Lovenox -) 40 mg SQ DAILY [facility] Last Admin: 12/30/16 09:11 Dose: 40 mg Escitalopram Oxalate (Lexapro -) 10 mg PO DAILY [facility] Last Admin: 12/30/16 09:12 Dose: 10 mg Fentanyl (Sublimaze Injection -) 50 mcg IVPUSH [id number] PRN PRN Reason: PAIN Stop: 12/31/16 16:42 Glimepiride (Amaryl -) 1 mg PO DAILY@0700 [facility] Last Admin: 12/31/16 06:21 Dose: 1 mg Insulin Aspart (Novolog Vial Sliding Scale -) 1 vial SQ ACHS [facility] PRN Reason: Protocol Last Admin: 12/31/16 08:31 Dose: Not Given Memantine (Namenda -) 10 mg PO DAILY [facility] Last Admin: 12/30/16 09:12 Dose: 10 mg Ondansetron HCl (Zofran Injection) 4 mg IVPB Q6H PRN PRN Reason: NAUSEA Polyethylene Glycol (Miralax (For Daily Use) -) 17 gm PO DAILY [facility] Last Admin: 12/30/16 14:52 Dose: 17 gm Tamsulosin HCl (Flomax -) 0.8 mg PO DAILY@0830 [facility] Last Admin: 12/31/16 08:49 Dose: 0.8 mg - Objective Vital Signs: Vital Signs Temperature 99.1 F 12/31/16 08:58 Pulse Rate 101 H 12/31/16 08:58 Respiratory Rate 18 12/31/16 08:58 Blood Pressure 147/74 12/31/16 08:58 O2 Sat by Pulse Oximetry (%) 95 12/30/16 21:00 Constitutional: Yes: Calm, Pallor Cardiovascular: Yes: Tachycardia Respiratory: Yes: Regular Gastrointestinal: Yes: Soft, Distention, Hyperactive Bowel Sounds. No: Tenderness Genitourinary: No: Tabares Present Edema: No Wound/Incision: Yes: Other (some blood under wound dressing.) Psychiatric: Yes: Alert Labs: CBC, BMP 12/31/16 06:20 12/31/16 06:20 INR, PTT INR 1.20 (0.82-1.09) H 12/27/16 04:40 Problem List - Problems (1) Closed fracture of left hip Assessment/Plan: Surgery with Gamma nail 12/28/16 Code(s): S72.002A - FRACTURE OF UNSP PART OF NECK OF LEFT FEMUR, INIT Qualifiers: Encounter type: initial encounter Qualified Code(s): S72.002A - Fracture of unspecified part of neck of left femur, initial encounter for closed fracture (2) Dementia Assessment/Plan: On Rx and stable Code(s): F03.90 - UNSPECIFIED DEMENTIA WITHOUT BEHAVIORAL DISTURBANCE Qualifiers: Dementia type: unspecified type Dementia behavioral disturbance: without behavioral disturbance Qualified Code(s): F03.90 - Unspecified dementia without behavioral disturbance (3) Diabetes Assessment/Plan: BGM ordered Code(s): E11.9 - TYPE 2 DIABETES MELLITUS WITHOUT COMPLICATIONS Qualifiers: Diabetes mellitus type: type 2 Diabetes mellitus complication status: without complication Qualified Code(s): E11.9 - Type 2 diabetes mellitus without complications (4) HTN (hypertension) Assessment/Plan: BYP trending higher; will D/C IV fluids. Code(s): I10 - ESSENTIAL (PRIMARY) HYPERTENSION Qualifiers: Hypertension type: essential hypertension Qualified Code(s): I10 - Essential (primary) hypertension (5) Leukocytosis Assessment/Plan: ID Rec: no Rx for + Urine C/S. Code(s): D72.829 - ELEVATED WHITE BLOOD CELL COUNT, UNSPECIFIED (6) Blood loss anemia Assessment/Plan: Hb 7.7; will follow. Code(s): D50.0 - IRON DEFICIENCY ANEMIA SECONDARY TO BLOOD LOSS (CHRONIC)
[2016-12-31] MEDS: ESCITALOPRAM OXALATE 10 MG TABLET (FP) PO SCH (10:24)
[2016-12-31] MEDS: ENOXAPARIN NA (PORCINE) 40 MG/0.4 ML DISP.SYRIN SQ SCH (10:24)
[2016-12-31] MEDS: DOCUSATE SODIUM 100 MG CAPSULE (FP) PO SCH ×2 (10:24→22:14)
[2016-12-31] MEDS: DOCUSATE NA 100 MG/10 ML UNIT-DOSE CUPS PO SCH (10:25)
[2016-12-31] MEDS: MEMANTINE HCL 10 MG TABLET (FP) PO SCH (10:25)
[2016-12-31] MEDS: POLYETHYLENE GLYCOL 3350 119 GM BTL PO SCH (10:30)
[2016-12-31] MEDS: ATORVASTATIN CA 20 MG TABLET (FP) PO SCH (22:14)
[2017-01-01] MEDS: GLIMEPIRIDE 1 MG TABLET (FP) PO SCH (06:20)
[2017-01-01] MEDS: INSULIN SLIDING SCALE (NOVOLOG) 1 VIAL SQ SCH ×2 (06:20→11:56)
[2017-01-01 08:17] LABS: BASOPHIL 0.3 % (0-2.0); EOSINOPHIL 0.9 % (0-4.5); MCH 30.9 pg (25.7-33.7); MEAN CELL VOLUME 88.5 fl (80-96); MEAN PLT VOLUME 7.4 fl (7.5-11.1); NEUTROPHILS 74.5 % (42.8-82.8); PLATELET COUNT 260 K/MM3 (134-434); RDW 12.7 % (11.9-15.9); WHITE BLOOD COUNT 10.3 K/mm3 (4.0-10.0)
[2017-01-01] MEDS: TAMSULOSIN HCL 0.4 MG CAP.ER.24H (FP) PO SCH (08:27)
[2017-01-01 08:31] LABS: CALCIUM 8.2 mg/dL (8.5-10.1); CREATININE 0.7 mg/dL (0.7-1.3)
[2017-01-01] MEDS: DOCUSATE SODIUM 100 MG CAPSULE (FP) PO SCH (10:30)
[2017-01-01] MEDS: MEMANTINE HCL 10 MG TABLET (FP) PO SCH (10:30)
[2017-01-01] MEDS: DOCUSATE NA 100 MG/10 ML UNIT-DOSE CUPS PO SCH (10:30)
[2017-01-01] MEDS: ENOXAPARIN NA (PORCINE) 40 MG/0.4 ML DISP.SYRIN SQ SCH (10:30)
[2017-01-01] MEDS: POLYETHYLENE GLYCOL 3350 119 GM BTL PO SCH (10:30)
[2017-01-01] MEDS: ESCITALOPRAM OXALATE 10 MG TABLET (FP) PO SCH (10:30)
--- NOTE | 2017-01-01 12:21 | DS ---
Physical Examination Vital Signs: Vital Signs Temperature 98.5 F 01/01/17 08:54 Pulse Rate 99 H 01/01/17 08:54 Respiratory Rate 18 01/01/17 08:54 Blood Pressure 140/64 01/01/17 08:54 O2 Sat by Pulse Oximetry (%) 96 12/31/16 20:43 Constitutional: Yes: Calm Cardiovascular: Yes: Tachycardia Respiratory: Yes: Diminished. No: Rales Gastrointestinal: Yes: Soft, Distention. No: Tenderness Renal/: No: Tabares Present Extremities: Yes: Other (SCD's) Edema: No Wound/Incision: Yes: Dressing Dry and Intact (some blood under bandage noted.) Neurological: Yes: Alert Labs: CBC, BMP 01/01/17 07:10 01/01/17 07:10 Discharge Summary Reason For Visit: CLOSED FRACTURE OF LEFT HIP Current Active Problems Blood loss anemia (Acute) Closed fracture of left hip (Acute) Fall (Acute) Pain: acute Diabetes Mellitus type 2 (Acute) Dementia on Rx. Procedures: Principal: Gamma Nail Insertion left Hip Other Procedures: Followup lab for blood loss anemia Hospital Course: No current setbacks but still having pain and anxiety on attempt at ambulation with PT. Condition: Stable - Instructions Diet, Activity, Other Instructions: regular diet; no concentrated sweets Followup CBC and Basic profile in 48 hrs. BGM daily AC Referrals: Rubio Mcadams MD [Primary Care Provider] - Adria Silva MD [Staff Physician] - Disposition: [facility] - Home Medications Comprehensive Discharge Medication List: Ambulatory Orders Atorvastatin Ca [Lipitor] 20 mg PO HS 11/01/15 Escitalopram Oxalate [Lexapro -] 10 mg PO DAILY 11/01/15 Losartan Potassium 50 mg PO DAILY 11/01/15 Memantine HCl [Namenda -] 10 mg PO DAILY 11/01/15 Montelukast Sodium [Singulair] 4 mg PO DAILY 11/01/15 Propranolol HCl [Propranolol HCl ER] 80 mg PO DAILY 11/01/15 Glimepiride 1 mg PO DAILY #0 11/08/15 Tamsulosin HCl [Flomax -] 0.8 mg PO DAILY@0830 cap.er.24h 11/08/15 Acetaminophen [Tylenol .Regular Strength -] 650 mg PO Q4H PRN #0 tablet Docusate Sodium [Colace -] 100 mg PO BID 01/01/17 Enoxaparin [Lovenox -] 40 mg SQ DAILY 01/01/17 Polyethylene Glycol 3350 [Miralax 119 gm Btl -] 17 gm PO DAILY bottle 01/01/17
[2017-01-01] MEDS ORDERED: oxyCODONE HCL 5 MG TABLET PO PRN (12:24)
[2017-01-01 14:45] VITALS: BP 127/53; PULSE 109; TEMP 98.1
--- NOTE | 2017-01-01 17:21 | EKG ---
Test Reason : Blood Pressure : / mmHG Vent. Rate : 070 BPM Atrial Rate : 070 BPM P-R Int : 136 ms QRS Dur : 090 ms QT Int : 390 ms P-R-T Axes : 078 054 062 degrees QTc Int : 421 ms NORMAL SINUS RHYTHM NONSPECIFIC ST AND T WAVE ABNORMALITY ABNORMAL ECG WHEN COMPARED WITH ECG OF 27-DEC-2016 05:13, NO SIGNIFICANT CHANGE WAS FOUND Confirmed by AMY LUTZ MD ([id number]) on 01/01/2017 5:21:14 PM Referred By: Confirmed By:AMY LUTZ MD
== END 2017-01-01 16:07 | DRG 481 ==
LOC: JER 04:04 → JERBED 05:22 → J4S 09:36 → J6S 12-28 17:00
PROVIDERS: ADMIT Internal Medicine; ATTEND Internal Medicine
PROC: 0QS706Z Reposition Left Upper Femur with Intramedullary Internal Fixation Device, Open Approach (ICD-10-PCS; principal; 2016-12-28 15:00)
PROC: 30233N1 Transfusion of Nonautologous Red Blood Cells into Peripheral Vein, Percutaneous Approach (ICD-10-PCS; 2016-12-31)
DX: S72.142A Displaced intertrochanteric fracture of left femur, initial encounter for closed fracture (principal); D62 Acute posthemorrhagic anemia; W19.XXXA Unspecified fall, initial encounter; Y93.9 Activity, unspecified; Y92.89 Other specified places as the place of occurrence of the external cause; Y99.9 Unspecified external cause status; E11.9 Type 2 diabetes mellitus without complications; F03.90 Unspecified dementia, unspecified severity, without behavioral disturbance, psychotic disturbance, mood disturbance, and anxiety; I10 Essential (primary) hypertension; D72.829 Elevated white blood cell count, unspecified; F09 Unspecified mental disorder due to known physiological condition; E86.0 Dehydration; I95.9 Hypotension, unspecified; E78.5 Hyperlipidemia, unspecified; Z87.891 Personal history of nicotine dependence; N40.0 Benign prostatic hyperplasia without lower urinary tract symptoms
CPT/HCPCS: 36415; 36430; 71010-TC; 73523-TC; 76000-TC; 80048; 80053; 81003; 83690; 83735; 83880; 84100; 85025; 85027; 85610; 86850; 86900; 86901; 86922; 87040; 87086; 87186; 93005; 93010; 94010; 94760; 97116-GP; 97162-PG; 99285-25; P9058